=== PATIENT | female | born 1995 | race African-American/Black ===

== ENCOUNTER 2025-05-24 14:43 | Emergency (ER) | payer MEDICAID ==
[~2025-05-24] VITALS: Ht 175.3 cm; Wt 100.0 kg
[2025-05-24 14:45] VITALS: O2SAT 100
[2025-05-24 14:58] VITALS: BP 122/86; PULSE 84; RESP 18; TEMP 36.7; O2SAT 99
[2025-05-24 16:37] LABS: BASOPHILS % 0.7 % (0.0-2.0); EOSINOPHILS % 1.6 % (0.0-5.0); HEMATOCRIT. 36.1 % (36.0-48.0); HEMOGLOBIN. 11.8 g/dL (12.0-16.0); LYMPHOCYTES % 29.3 % (20.0-50.0); MEAN PLATELET VOLUME 9.9 fl (7.4-10.4); MONOCYTES % 8.0 % (2.0-8.0); NEUTROPHILS % 60.4 % (40.0-76.0); PLATELET 182 x1000/uL (130-400); RED BLOOD CELL COUNT 4.19 mill/uL (4.2-5.4); RED CELL DISTRIBUTION WIDTH 13.6 % (11.6-14.6)
[2025-05-24 16:48] LABS: CREATININE 0.6 mg/dL (0.6-1.0); UREA NITROGEN BLOOD 6 mg/dL (9-23)
[2025-05-24 17:03] LABS: B-HCG QUANTITATIVE 60495 mIU/mL (<6)
[2025-05-24] MEDS ORDERED: PREN-118 MT (17:13)
== END 2025-05-24 17:43 | disposition home or self-care (01) ==
LOC: ER 14:43
DX: O20.8 Other hemorrhage in early pregnancy (principal); R10.2 Pelvic and perineal pain; Z79.899 Other long term (current) drug therapy; Z3A.09 9 weeks gestation of pregnancy
CPT/HCPCS: 36415; 76801; 80048; 81025; 84702; 85025; 86850; 86900; 99284

== ENCOUNTER 2025-06-23 12:32 | Emergency (ER) | payer MEDICAID ==
[~2025-06-23] VITALS: Ht 165.1 cm; Wt 115.0 kg
[~2025-06-23 12:32] MED LIST: PREN-118 MT
[2025-06-23 12:39] VITALS: O2SAT 99
[2025-06-23 13:36] LABS: BASOPHILS % 0.6 % (0.0-2.0); EOSINOPHILS % 0.8 % (0.0-5.0); HEMATOCRIT. 35.1 % (36.0-48.0); HEMOGLOBIN. 11.7 g/dL (12.0-16.0); LYMPHOCYTES % 26.7 % (20.0-50.0); MEAN PLATELET VOLUME 10.1 fl (7.4-10.4); MONOCYTES % 8.0 % (2.0-8.0); NEUTROPHILS % 63.9 % (40.0-76.0); PLATELET 181 x1000/uL (130-400); RED BLOOD CELL COUNT 4.17 mill/uL (4.2-5.4); RED CELL DISTRIBUTION WIDTH 13.2 % (11.6-14.6)
[2025-06-23 13:43] LABS: INR 1.0
[2025-06-23 13:44] LABS: UREA NITROGEN BLOOD 6 mg/dL (9-23)
[2025-06-23 14:43] LABS: B-HCG QUANTITATIVE 57247 mIU/mL (<6); CREATININE 0.4 mg/dL (0.6-1.0)
[2025-06-23 15:45] LABS: CLARITY URINE CLEAR (CLEAR); COLOR URINE YELLOW (YELLOW); GLUCOSE URINE NEGATIVE (NEGATIVE); KETONES URINE 1+ (NEGATIVE); LEUKOCYTE ESTERASE URINE NEGATIVE (NEGATIVE); NITRITE URINE NEGATIVE (NEGATIVE); OCCULT BLOOD URINE NEGATIVE (NEGATIVE); PH URINE 6.0 (4.5-8.0); PROTEIN URINE NEGATIVE (NEGATIVE); SPECIFIC GRAVITY URINE 1.025 (1.005-1.030); UROBILINOGEN URINE 0.2 E.U./dL (0.2-1.0)
[2025-06-23 16:17] VITALS: BP 153/84; PULSE 81; RESP 20; TEMP 36.7; O2SAT 99
== END 2025-06-23 16:43 | disposition home or self-care (01) ==
LOC: ER 12:32
DX: O20.0 Threatened abortion (principal); O34.11 Maternal care for benign tumor of corpus uteri, first trimester; Z3A.13 13 weeks gestation of pregnancy
CPT/HCPCS: 80048; 81003; 84702; 85025; 85610; 85730; 86850; 86900; 86901; 36415; 76801; 76817; 99285; Z7610; 99284

== ENCOUNTER 2025-07-07 07:45 | Emergency (ER) | payer MEDICAID ==
[~2025-07-07] VITALS: Ht 165.1 cm; Wt 122.0 kg
[2025-07-07 07:49] VITALS: O2SAT 100
[2025-07-07 08:27] LABS: BASOPHILS % 0.7 % (0.0-2.0); EOSINOPHILS % 1.4 % (0.0-5.0); HEMATOCRIT. 32.7 % (36.0-48.0); HEMOGLOBIN. 10.9 g/dL (12.0-16.0); LYMPHOCYTES % 19.2 % (20.0-50.0); MEAN PLATELET VOLUME 9.5 fl (7.4-10.4); MONOCYTES % 8.3 % (2.0-8.0); NEUTROPHILS % 70.4 % (40.0-76.0); PLATELET 200 x1000/uL (130-400); RED BLOOD CELL COUNT 3.86 mill/uL (4.2-5.4); RED CELL DISTRIBUTION WIDTH 13.0 % (11.6-14.6)
[2025-07-07 08:40] LABS: CREATININE 0.5 mg/dL (0.6-1.0); UREA NITROGEN BLOOD 6 mg/dL (9-23)
[2025-07-07 08:54] LABS: B-HCG QUANTITATIVE 38865 mIU/mL (<6)
[2025-07-07] MEDS: ACETAMINOPHEN 500MG TABLET PO ONE (09:07)
[2025-07-07 09:10] LABS: HCG SCREEN POSITIVE
[2025-07-07 09:33] LABS: CLARITY URINE CLEAR (CLEAR); COLOR URINE YELLOW (YELLOW); GLUCOSE URINE NEGATIVE (NEGATIVE); KETONES URINE NEGATIVE (NEGATIVE); LEUKOCYTE ESTERASE URINE NEGATIVE (NEGATIVE); NITRITE URINE NEGATIVE (NEGATIVE); OCCULT BLOOD URINE NEGATIVE (NEGATIVE); PH URINE 7.0 (4.5-8.0); PROTEIN URINE NEGATIVE (NEGATIVE); SPECIFIC GRAVITY URINE 1.005 (1.005-1.030); UROBILINOGEN URINE 0.2 E.U./dL (0.2-1.0)
[2025-07-07] MEDS ORDERED: TOPUD PO (09:49)
[2025-07-07 10:41] VITALS: BP 134/82; PULSE 74; RESP 16; TEMP 36.7; O2SAT 99
== END 2025-07-07 10:45 | disposition home or self-care (01) ==
LOC: ER 07:45
DX: O20.0 Threatened abortion (principal); Z3A.16 16 weeks gestation of pregnancy
CPT/HCPCS: 36415; 76805; 80048; 81003; 81025; 84702; 84703; 85025; 86850; 86900; 99284